=== PATIENT | male | born 1990 | race African-American/Black ===

== ENCOUNTER 2016-10-30 12:11 | Emergency (ER) | payer OTHER ==
[~2016-10-30] VITALS: Ht 185.4 cm; Wt 77.1 kg
[2016-10-30 12:23] VITALS: BP 127/74
[2016-10-30] MEDS ORDERED: BACTRIM DS TAB1 EACH PO (13:43)
--- NOTE | 2016-10-30 13:44 | ED SKIN/ALLERGY COMPLAINT ---
History of Present Illness General Chief Complaint: General Adult Stated Complaint: PT HAS INFECTION ON THE LEFT SIDE OF FACE Source: patient Exam Limitations: no limitations Vital Signs & Intake/Output Vital Signs & Intake/Output Vital Signs Date Time Temp Pulse Resp B/P Pulse O2 O2 Flow FiO2 Ox Delivery Rate 10/30 1223 97.8 95 20 127/74 18 Room Air Allergies Coded Allergies: NO KNOWN ALLERGIES (10/20/12) Reconcile Medications Sulfamethoxazole/Trimethoprim (Bactrim Ds Tablet) 800 MG-160 MG TABLET 1 TAB PO BID infection Triage Note: C/O PAINFUL LUMP ON LEFT SIDE OF FACE X 1 WEEK. Triage Nurses Notes Reviewed? yes HPI: 26-year-old male with a painful lump in the left side of the face which she thinks is an abscess. He has had them for another location. He complains of pain and swelling, severe tenderness palpation, started approximately 5 days ago and is getting worse. He is applying warm compresses with some relief. He denies any fever or flulike illness or infectious symptoms constitutionally. Past History Travel History Traveled to [place] past 21 day No Medical History Any Pertinent Medical History? none Surgical History Surgical History: non-contributory Psychosocial History What is your primary language Andorran Tobacco Use: Current Daily Use Daily Tobacco Use Amount/Type: => 5 Cigarettes daily ETOH Use: occasional use Family History Hx Contributory? No Review of Systems Review of Systems Constitutional: Reports: see HPI. Respiratory: Reports: no symptoms. Cardiovascular: Reports: no symptoms. GI: Reports: no symptoms. Genitourinary: Reports: no symptoms. Musculoskeletal: Reports: no symptoms. Neurological/Psychological: Reports: no symptoms. Hematologic/Endocrine: Reports: no symptoms. Immunologic/Allergic: Reports: no symptoms. All Other Systems: Reviewed and Negative Physical Exam Physical Exam General Appearance: well developed/nourished, mild distress Head: atraumatic Eyes: Bilateral: PERRL, EOMI. Ears, Nose, Throat: normal pharynx, normal ENT inspection, hearing grossly normal Neck: normal inspection, supple Respiratory: normal breath sounds Cardiovascular: regular rate/rhythm Gastrointestinal: soft, non-tender Back: normal inspection Extremities: normal inspection, normal range of motion, no edema Neurologic/Psych: awake, alert, oriented x 3, normal mood/affect Lymphatic: no anterior cervical jez Comments: Left side of the face at the angle of the mandible, just anterior and inferior to the tragus there is a 3 x 4 cm area of very superficial fluctuance with some mild skin breakdown at the surface with the skin is very thin, consistent with abscess that is ready to be drained. There is no surrounding erythema or induration Progress Differential Diagnosis: abscess/cellulitis, allergic reaction Plan of Care: Orders Procedure Date/time Status HEAD & NECK CULTURE 10/30 1317 Active Microbiology 10/30 1317 HEAD/NECK: Head/Neck Culture - ORD 10/30 1317 HEAD/NECK: Gram Stain - ORD Departure Departure Disposition: HOME OR SELF CARE Condition: Stable Clinical Impression Primary Impression: Abscess of face Referrals: PATIENT HAS NO PRIMARY CARE DR (PCP/Family) Additional Instructions: Taken antibiotics as directed, apply warm compresses for infection several times a day. Ice as needed for pain. Motrin and Tylenol for pain. Return with worsening pain swelling redness fever or flulike illness. Departure Forms: Customer Survey General Discharge Information Prescriptions: Current Visit Scripts Sulfamethoxazole/Trimethoprim (Bactrim Ds Tablet) 1 TAB PO BID #14 TAB Procedures Incision and Drainage Site: LEFT SIDE OF THE FACE, ANGLE OF THE MANDIBLE Blade Size: 11 I & D Procedure: Yes: betadine prep, sterile drapes applied, sterile dressing applied. No: wick placed. Progress: Chlorhexidine, ice applied, 11 blade scalpel used to make an incision at the apex of the abscess. Moderate amount of thick purulent discharge was expressed. This was cultured. A dressing was then applied. Patient tolerated well without complications.
== END 2016-10-30 14:05 ==
LOC: ERH 12:11
DX: L02.01 Cutaneous abscess of face (principal)
CPT/HCPCS: 87070